=== PATIENT | male | born 1960 | race Caucasian/White ===

== ENCOUNTER 2017-03-28 16:32 | Emergency (ER) | payer OTHER ==
[2017-03-28] MEDS ORDERED: ASPIRIN 81 MG TABLET, CHEWABLE PO ONE (16:58)
--- NOTE | 2017-03-28 17:04 | ER Document Report ---
ED Medical Screen (RME) - General Chief Complaint: Chest Pain Stated Complaint: CHEST PAIN TRAVEL OUTSIDE OF THE [place] IN LAST 30 DAYS: No - HPI Patient complains to provider of: Pain, back pain radiation to his bilateral arms and palpitations Notes: 03/28/17 17:00 Describing an odd sensation aching pain from his chest to his upper back. Been associated with his arms bilaterally feeling "queasy. Patient denies overt vomiting shortness of breath or diaphoresis. Patient had been at the gym has been exercising he was done exercising getting gas when this pain came upon them at the gas station. Patient states it feels different he has never experienced this sensation before 8/10 aching in nature nothing has relieved the symptoms. Not tearing in nature more of an inconvenience. Patient is no acute distress 03/28/17 17:03 - Related Data Allergies/Adverse Reactions: No Known Allergies Allergy (Unverified 03/28/17 16:44) Past Medical History - Social History Chew tobacco use (# tins/day): No Frequency of alcohol use: Heavy Drug Abuse: None - Past Medical History Cardiac Medical History: Reports: Hx Hypertension Renal/ Medical History: Denies: Hx Peritoneal Dialysis Past Surgical History: Reports: Hx Orthopedic Surgery - vertebrae Review of Systems - Review of Systems Cardiovascular: Chest pain, Palpitations Musculoskeletal: Back pain Physical Exam - Vital signs Vitals: Temp Pulse Resp BP Pulse Ox 97.3 F 88 18 161/100 H 98 03/28/17 16:45 03/28/17 16:45 03/28/17 16:45 03/28/17 16:45 03/28/17 16:45 - Respiratory Respiratory status: No respiratory distress Chest status: Nontender Breath sounds: Normal Chest palpation: Normal - Cardiovascular Rhythm: Regular Heart sounds: Normal auscultation Course - Re-evaluation Re-evalutation: 03/28/17 17:04 36 years of age presents with aching chest pain radiates to his back and bilateral arm discomfort. EKG is nonspecific changes. No previous EKG to compare - Vital Signs Vital signs: Temp Pulse Resp BP Pulse Ox 97.3 F 88 18 161/100 H 98 03/28/17 16:45 03/28/17 16:45 03/28/17 16:45 03/28/17 16:45 03/28/17 16:45
[2017-03-28 17:24] LABS: ABSOLUTE BASOPHILS # (AUTO) 0.1 10^3/uL (0.0-0.2); ABSOLUTE EOSINOPHILS # (AUTO) 0.1 10^3/uL (0.0-0.6); ABSOLUTE LYMPHOCYTES (AUTO) 1.7 10^3/uL (0.5-4.7); ABSOLUTE MONOCYTES (AUTO) 0.6 10^3/uL (0.1-1.4); ABSOLUTE NEUT (AUTO) 6.7 10^3/uL (1.7-8.2); BASOPHILS % (AUTO) 0.8 % (0-2); EOSINOPHILS % (AUTO) 0.8 % (0-6); HEMATOCRIT 50.3 % (37.9-51.0); HEMOGLOBIN 17.8 g/dL (13.5-17.0); HGB HCT DIFFERENCE 3.1; LYMPHOCYTES % (AUTO) 18.3 % (13-45); MEAN CORPUSCULAR HEMOGLOBIN 32.7 pg (27.0-33.4); MEAN CORPUSCULAR HGB CONC 35.3 g/dL (32.0-36.0); MEAN CORPUSCULAR VOLUME 93 fl (80-97); MONOCYTES % (AUTO) 6.3 % (3-13); RED BLOOD COUNT 5.44 10^6/uL (4.35-5.55); RED CELL DISTRIBUTION WIDTH 13.7 % (11.5-14.0); SEGMENTED NEUTROPHILS % (AUTO) 73.8 % (42-78); WHITE BLOOD COUNT 9.1 10^3/uL (4.0-10.5)
--- NOTE | 2017-03-28 17:33 | RADIOLOGY REPORT (SQ) ---
EXAM DESCRIPTION: CHEST SINGLE VIEW COMPLETED DATE/TIME: 03/28/2017 5:20 pm REASON FOR STUDY: chest pain COMPARISON: None. EXAM PARAMETERS: NUMBER OF VIEWS: One view. TECHNIQUE: Single frontal radiographic view of the chest acquired. RADIATION DOSE: NA LIMITATIONS: None. FINDINGS: LUNGS AND PLEURA: No opacities, masses or pneumothorax. No pleural effusion. MEDIASTINUM AND HILAR STRUCTURES: No masses. Contour normal. HEART AND VASCULAR STRUCTURES: Heart normal in size. Normal vasculature. BONES: No acute findings. HARDWARE: None in the chest. OTHER: No other significant finding. IMPRESSION: NO ACUTE RADIOGRAPHIC FINDING IN THE CHEST. TECHNICAL DOCUMENTATION: JOB ID: [id number]
[2017-03-28 17:37] LABS: ALANINE AMINOTRANSFERASE 29 U/L (21-72); ALBUMIN 4.9 g/dL (3.5-5.0); ALKALINE PHOSPHATASE 84 U/L (38-126); ANION GAP 17 (5-19); ASPARTATE AMINO TRANSFERASE 28 U/L (17-59); BILIRUBIN,DIRECT 0.4 mg/dL (0.0-0.4); BILIRUBIN,TOTAL 0.9 mg/dL (0.2-1.3); BLOOD UREA NITROGEN 13 mg/dL (7-20); CALCIUM 10.2 mg/dL (8.4-10.2); CARBON DIOXIDE 25 mmol/L (22-30); CHLORIDE 98 mmol/L (98-107); CREATININE RESULT 1.09 mg/dL (0.52-1.25); GLUCOSE 168 mg/dL (75-110); POTASSIUM 3.9 mmol/L (3.6-5.0); SODIUM 139.7 mmol/L (137-145); TOTAL PROTEIN 8.5 g/dL (6.3-8.2)
--- NOTE | 2017-03-28 17:42 | ER Document Report ---
ED General - General Mode of Arrival: Ambulatory Information source: Patient TRAVEL OUTSIDE OF THE [place] IN LAST 30 DAYS: No <MILES JENKINS - Last Filed: 03/28/17 17:25> <JAKY BAÑUELOS - Last Filed: 03/28/17 22:09> - General Chief Complaint: Chest Pain Stated Complaint: CHEST PAIN Notes: Patient is a 56 year old male presenting to the ED for chest and back pain. Patient describes an odd sensation from his chest into his upper back. Patient' s pain was onset this afternoon just prior to arrival. Patient also states he has this pain/sensation that radiates into his arms bilaterally. Patient denies any vomiting, shortness of breath, or diaphoresis. Patient was working out at the gym earlier today which is his normal routine before his pain started. After leaving the gym the patient was getting some gas when his symptoms started. Patient states he has not had any pain like this in the past. Patient describes his pain as an "ice cream headache" in the center of his back. Patient states the pain was "overwhelming" and made him feel "queasy." Patient states the pain has started to ease off over the last 10-15 minutes but it is still present. Patient denies any pain with coughing. Patient has a history of hypertension and takes lisinopril 5 mg but he also states he hasn't taken any for the last couple of days. Patient does not smoke but drinks EtOH 2-3 times a week moderately. Patient has no known drug allergies. PCP [facility] (MIELS JENKINS) - Related Data Allergies/Adverse Reactions: No Known Allergies Allergy (Unverified 03/28/17 16:44) Past Medical History - General Information source: Patient - Social History Smoking Status: Never Smoker Cigarette use (# per day): No Chew tobacco use (# tins/day): No Frequency of alcohol use: Moderately (2-3 times a week) Drug Abuse: None Occupation: [employer] Family History: None Patient has suicidal ideation: No Patient has homicidal ideation: No - Past Medical History Cardiac Medical History: Reports: Hx Hypertension Past Surgical History: Reports: Hx Orthopedic Surgery - vertebrae, hemilamectomy without fusion, heel spurs, right hand <MILES JENKINS - Last Filed: 03/28/17 17:25> Review of Systems - Review of Systems Constitutional: No symptoms reported EENT: No symptoms reported Cardiovascular: See HPI, Chest pain Respiratory: No symptoms reported Gastrointestinal: No symptoms reported Genitourinary: No symptoms reported Male Genitourinary: No symptoms reported Musculoskeletal: See HPI Skin: No symptoms reported Hematologic/Lymphatic: No symptoms reported Neurological/Psychological: No symptoms reported -: Yes All other systems reviewed and negative <TAIKENNY ANDERSONINE - Last Filed: 03/28/17 17:25> Physical Exam - Vital signs Interpretation: Hypertensive - 168/117 <GREGORYMILES - Last Filed: 03/28/17 17:25> <JAKY BAÑUELOS - Last Filed: 03/28/17 22:09> - Vital signs Vitals: Temp Pulse Resp BP Pulse Ox 97.3 F 88 18 161/100 H 98 03/28/17 16:45 03/28/17 16:45 03/28/17 16:45 03/28/17 16:45 03/28/17 16:45 - Notes Notes: GENERAL: Alert, interacts well. Mild distress. HEAD: Normocephalic, atraumatic. EYES: Appear normal. Pupils equal, round, and reactive to light. ENT: Moist mucus membranes, tongue midline. NECK: Full range of motion. Supple. Trachea midline. LUNGS: Clear to auscultation bilaterally, no wheezes, rales, or rhonchi. No respiratory distress. HEART: Regular rate and rhythm. No murmurs, gallops, or rubs. ABDOMEN: Soft, non-tender. Non-distended. Normal bowel sounds. EXTREMITIES: Moves all 4 extremities spontaneously. Normal strength. No edema. NEUROLOGICAL: Alert and oriented x3. Normal speech. No focal neurological deficits. GSC 15. PSYCH: Normal affect, normal mood. SKIN: Warm, dry, normal turgor. No rashes or lesions noted. (MILES JENKINS) Course - Laboratory Result Diagrams: 03/28/17 17:05 03/28/17 17:05 <MILES JENKINS - Last Filed: 03/28/17 17:25> - Laboratory Result Diagrams: 03/28/17 17:05 03/28/17 17:05 - Diagnostic Test Radiology reviewed: Image reviewed, Reports reviewed - Chest x-ray is unremarkable - EKG Interpretation by Me EKG shows normal: Sinus rhythm, Pollock, Intervals, QRS Complexes. abnormal: ST-T Waves - T-wave inversions in the inferior leads suggesting ischemic change Rate: Normal - 92 Rhythm: NSR When compared to previous EKG there are: Previous EKG unavailable - Consults Dr. Springer Time consulted: 20:15 Consulted provider: other - Dr. Springer will be the accepting physician at [facility]. The covering fellow requests the patient be started on atorvastatin 80 mg once daily, metoprolol 12.5 twice daily starting tomorrow, Plavix 75 mg daily starting tomorrow, aspirin 81 mg daily starting tomorrow, and continue the heparin drip. At this time it is projected that a bed will not be available until sometime tomorrow. <JAKY BAÑUELOS - Last Filed: 03/28/17 22:09> - Re-evaluation Re-evalutation: 03/28/17 17:53 Patient's initial blood pressure was 161/100, he was given 1 sublingual nitroglycerin at 1735. His pressure came down to about 140 systolic, but when I went to check on him the pressure had gone back up over 165 systolic. He was given a second sublingual nitroglycerin at 1752. He states the pain has not really changed much and he thinks laying down may have made it worse. I will repeat the EKG and give him a dose of Lopressor 5 mg IV at this time. 03/28/17 18:41 Patient is feeling better at this time blood pressure is much lower. A repeat EKG is now normal showing reversal of the ischemic changes seen on arrival. (JAKY BAÑUELOS) - Vital Signs Vital signs: Temp Pulse Resp BP Pulse Ox 97.3 F 88 20 154/95 H 95 03/28/17 16:45 03/28/17 16:45 03/28/17 21:53 03/28/17 21:53 03/28/17 21:53 - Laboratory Laboratory results interpreted by me: 03/28/17 03/28/17 03/28/17 17:05 17:05 17:05 Hgb 17.8 H Glucose 168 H Total Protein 8.5 H Cholesterol 273.18 H Urine Ketones 03/28/17 21:35 Hgb Glucose Total Protein Cholesterol Urine Ketones 20 H Critical Care Note - Critical Care Note Total time excluding time spent on procedures (mins): 40 <JAKY BAÑUELOS - Last Filed: 03/28/17 22:09> Discharge <MILES JENKINS - Last Filed: 03/28/17 17:25> <JAKY BAÑUELOS - Last Filed: 03/28/17 22:09> - Discharge Clinical Impression: Unstable angina Chest pain Qualifiers: Chest pain type: chest pain due to myocardial ischemia Ischemic chest pain type : unstable angina pectoris Qualified Code(s): I20.0 - Unstable angina Hypertension Qualifiers: Hypertension type: essential hypertension Qualified Code(s): I10 - Essential ( primary) hypertension Condition: Stable Disposition: [facility] Referrals: MARTHA MCCANN MD [Primary Care Provider] - Follow up as needed Scribe Attestation: 03/28/17 22:08 I personally performed the services described in the documentation, reviewed and edited the documentation which was dictated to the scribe in my presence, and it accurately records my words and actions. (JAKY BAÑUELOS) Scribe Documentation - Scribe Written by Scribe:: Nina Conner 03/28/17 17:52 acting as scribe for :: Hakan <MILES JENKINS - Last Filed: 03/28/17 17:25>
[2017-03-28 17:48] LABS: ADD ON TESTING BLD IN LAB ACKNOWLEDGE
[2017-03-28] MEDS ORDERED: METOPROLOL TARTRATE PF/INJ 5 MG/5 ML SDV IV ONE ×2 (17:53→18:57)
[2017-03-28 17:55] LABS: CREATINE KINASE 138 U/L (55-170)
[2017-03-28] MEDS ORDERED: CLOPIDOGREL BISULFATE 300 MG TABLET PO ONE (18:41)
[2017-03-28] MEDS ORDERED: HEPARIN SODIUM,PORCINE/D5W 250 ML IV PRN (18:52)
[2017-03-28] MEDS ORDERED: HEPARIN SOD (PORCINE) 1,000 UNIT/ML 10 ML VIAL IV PRN (18:52)
[2017-03-28] MEDS ORDERED: HEPARIN SOD (PORCINE) 1,000 UNIT/ML 10 ML VIAL IV ONE (18:52)
[2017-03-28 19:04] LABS: PARTIAL THROMBOPLASTIN TIME 23.7 SEC (23.5-35.8); PROTHROMBIN TIME 12.9 SEC (11.4-15.4)
[2017-03-28] MEDS ORDERED: METOPROLOL TARTRATE 50 MG TABLET PO ONE (20:07)
[2017-03-28 20:26] LABS: ADD ON TESTING BLD IN LAB ACKNOWLEDGE
[2017-03-28] MEDS ORDERED: ATORVASTATIN CALCIUM 80 MG TABLET PO SCH (20:30)
[2017-03-28 20:38] LABS: CHOLESTEROL 273.18 mg/dL (0-200); TRIGLYCERIDES 97 mg/dL (<150)
[2017-03-28] MEDS ORDERED: ATORVASTATIN CALCIUM 80 MG TABLET PO ONE (20:45)
[2017-03-28 21:57] LABS: APPEARANCE,URINE CLEAR; BILIRUBIN,URINE NEGATIVE (NEGATIVE); GLUCOSE, URINE NEGATIVE (NEGATIVE); KETONES,URINE 20 mg/dL (NEGATIVE); LEUKOCYTE ESTERASE,URINE NEGATIVE (NEGATIVE); NITRITE,URINE NEGATIVE (NEGATIVE); PROTEIN,URINE NEGATIVE (NEGATIVE); URINE SPECIFIC GRAVITY 1.008; UROBILINOGEN,URINE NEGATIVE mg/dL (<2.0)
[2017-03-28] MEDS ORDERED: NITROGLYCERIN 2% OINTMENT 1 GM PACKET TP ONE (23:38)
[2017-03-29] MEDS ORDERED: HYDROCODONE/ACETAMINOPHEN 5-325 MG TABLET PO ONE (06:21)
--- NOTE | 2017-03-29 06:21 | ER Document Report ---
Doctor's Note Notes: 03/29/17 06:21 Patient was reevaluated, he is stable at this time, states his chest pain has resolved since he arrived here. Patient does note chronic back pain and was given pain control for this
[2017-03-29] MEDS ORDERED: METOPROLOL TARTRATE 25 MG TABLET PO SCH (10:00)
[2017-03-29] MEDS ORDERED: ASPIRIN 81 MG TABLET, CHEWABLE PO SCH (10:00)
[2017-03-29 10:13] VITALS: BP 123/91
--- NOTE | 2017-03-29 11:14 | EKG REPORT ---
SEVERITY:- ABNORMAL ECG - SINUS RHYTHM ABNORMAL T, CONSIDER ISCHEMIA, INFERIOR LEADS : Confirmed by: Corin Rollins MD 29-Mar-2017 11:13:53
--- NOTE | 2017-03-29 11:14 | EKG REPORT ---
SEVERITY:- NORMAL ECG - SINUS RHYTHM : Confirmed by: Corin Rollins MD 29-Mar-2017 11:13:49
--- NOTE | 2017-03-29 11:14 | EKG REPORT ---
SEVERITY:- NORMAL ECG - SINUS RHYTHM : Confirmed by: Corin Rollins MD 29-Mar-2017 11:13:45
== END 2017-03-29 10:25 | disposition short-term general hospital (02) ==
LOC: ER 16:32
DX: I21.4 Non-ST elevation (NSTEMI) myocardial infarction (principal); D75.1 Secondary polycythemia; I20.0 Unstable angina; I10 Essential (primary) hypertension; R07.9 Chest pain, unspecified; M54.9 Dorsalgia, unspecified
CPT/HCPCS: 93005 ×2; 96376; 99285; 96375; 96365; 96366; 36415; 82465; 82550; 84478; 85025; 85610; 85730; 80053; 81001; 84484; 71010; 93010 ×2; J3490 ×2; J1644 ×2